=== PATIENT | male | born 1955 | race Caucasian/White ===

== ENCOUNTER → 2017-01-06 | Outpatient (CLI) | payer OTHER ==
[~2017-01-06] MED LIST: B-121000 MC1 PO; CALCIUM MAGNES1 EACH PO; FISH OIL 1,2001 EAC2 PO; FLOMAX0.4 M1 PO; LIPITOR40 MG PO; LO-DOSE ASPIRIN81 M1 PO; NORCO 7.5-3251 EACH PO; VOLTAREN75 MG PO; [UNRECOGNIZED DRUG - OTHER] PO
--- NOTE | ~2017-01-06 | EKG ---
PATIENT: LEVON VALVERDE UNIT #: [id number] Ventricular Rate: 71 BPM Atrial Rate: 71 BPM P-R Interval: 146 ms QRS Duration: 86 ms Q-T Interval: 398 ms QTC Calculation(Bezet): 432 ms P Valier: 74 degrees Calculated R Valier: 26 degrees Calculated T Valier: 60 degrees Diagnosis Line: Normal sinus rhythm with sinus arrhythmia Diagnosis Line: Normal ECG Diagnosis Line: No previous ECGs available Diagnosis Line: Confirmed by LU ELDER MD ([id number]) on Diagnosis Line: 01/07/2017 6:48:56 AM INTERPRETING MD: DORIS
== END | disposition home or self-care (01) ==
LOC: CAMB 13:54
DX: Z01.810 Encounter for preprocedural cardiovascular examination (principal); K40.90 Unilateral inguinal hernia, without obstruction or gangrene, not specified as recurrent; K42.9 Umbilical hernia without obstruction or gangrene
CPT/HCPCS: 93005

== ENCOUNTER → 2017-01-13 | Day surgery (SDC) | payer OTHER ==
--- NOTE | ~2017-01-13 | OR ---
Unit #: [id number] #: [id number] Patient: LEVON VALVERDE [id number] [address] [place], [place] [address] [id number] MR#: [id number] NAME: LEVON VALVERDE ROOM: Date of Procedure: 01/13/2017 Admission Date: 01/13/2017 Surgeon: Get Bone Jr., M.D. : 1955 Attending Physician: Get Bone Jr., M.D. Referring Physician: Get Bone Jr., M.D. Primary Care Physician: Theresa Gama M.D. OPERATIVE REPORT INDICATIONS FOR PROCEDURE The patient is a 61-year-old white male, recently presented to the office complaining of a bulge and some discomfort in the right inguinal area. He also has chronic incarcerated umbilical hernia. He has had a previous left inguinal hernia repair and has some pain in this area at times, but there was no obvious recurrent hernia. He was brought in this time for diagnostic laparoscopy, probable laparoscopic right inguinal hernia repair with open umbilical reduction and repair. The patient understands the procedure including the risks, including that of recurrence, infection, bleeding, and intra-abdominal organ injury, and consents. PREOPERATIVE DIAGNOSIS Right inguinal hernia, rule out left recurrent inguinal hernia with chronic incarcerated umbilical hernia. POSTOPERATIVE DIAGNOSES Right inguinal hernia, rule out left recurrent inguinal hernia with chronic incarcerated umbilical hernia, noting no evidence of any left inguinal hernia. The right inguinal hernia was indirect and there was incarcerated omental fat within the umbilical hernia. ANESTHESIA General with LMA and 0.5% Marcaine with epinephrine locally. PROCEDURES PERFORMED Diagnostic laparoscopy with laparoscopic right inguinal hernia repair and open umbilical hernia reduction and repair with a small Ventralex mesh. DESCRIPTION OF PROCEDURE The patient was positioned in supine position. After being anesthetized, he was prepped and draped in routine fashion for possible laparoscopic inguinal hernia repair and open umbilical hernia repair. A small incision was made in the infraumbilical area just to the right of the midline and a Veress needle was introduced in the abdomen. The abdomen was then inflated with CO2 gas. The 5-mm port was introduced in the abdomen followed by the camera. There was no evidence of any injury related to introduction of the port or the Veress needle. Brief intra-abdominal exploration was carried out. There was no evidence of any recurrent left inguinal hernia, but there was a right indirect inguinal hernia and there was a chronic incarcerated fat within the umbilical hernia. At this point, the CO2 was expressed from the abdomen. The port was removed and the fascia was incised to the right of the midline just below the Unit #: [id number] #: [id number] Patient: LEVON VALVERDE umbilicus and the right rectus abdominis muscle was retracted laterally and using the large Diane, a tunnel was produced. The dissecting balloon was placed and the area was dissected near the pubic symphysis. This was done under direct visualization with the camera. After this was complete, the balloon dissector was removed and the balloon retracting device was then placed and two 5-mm ports were placed in the lower midline through small incisions. The right inguinal area was dissected out. The indirect sac was freed up and cleaned from the cord structures and the peritoneum was likewise reduced down from the base of the cord to allow for proper positioning of the mesh. The patient did develop pneumoperitoneum and a small incision was made and a 5-mm port was introduced and this was evacuated without problems. A large 3D mesh was then placed over the right inguinal area and tacked to the Jesus Alberto's ligament with several spiral tacks. After this was in good position, the CO2 was expressed from the area and evacuated and the peritoneum was pulled over the top of the mesh to avoid any recurrence. After this was complete, all the CO2 was expressed from the abdomen. The additional port was removed and the right rectus sheath was then closed with interrupted 0 Vicryl suture. The skin edges on all 4 wounds were approximated with stainless-steel skin clips and skin stapling device. A small keyhole incision was made around the umbilicus in routine fashion for reduction and repair of his umbilical hernia. This was carried down through the subcutaneous tissue with a #15 blade scalpel to his hernia, which was stuck to the posterior aspect of the dermis of the umbilicus. This was freed up with a #15 blade scalpel and the fatty tissue incarcerated within that was then reduced back into the abdomen. There was approximately 1.5 cm defect in the fascia. Small Ventralex mesh was then placed below the muscle and pulled up against the muscle anteriorly and the straps tacked in place with interrupted 0 Ethibond sutures. The straps were then excised and the wound was irrigated with antibiotic solution, and after hemostasis was noted, the fascial defect was closed with interrupted 0 Ethibond sutures using modified Amor-Taylor type stitches. After this was complete, the umbilicus was tacked by tacking the dermis of the posterior aspect of the umbilicus to the fascia with 3-0 Vicryl suture. The subcutaneous tissue on the wound was approximated with interrupted 3-0 Vicryl sutures and skin edges were approximated with stainless-steel skin clips and skin stapling device. Sterile compressive dressing was applied externally. Estimated blood loss for both procedures including the diagnostic laparoscopy was less than 50 mL. The patient received a total of approximately 2000 mL or less of crystalloid solution during the procedure. Sponges and instrument counts were correct x3. No drains were used. No complications. The patient was taken to the recovery room with stable vital signs and in satisfactory condition. Dictated by... Get Bone Jr., MKeyon ROBERTSON/mary TD: 01/14/2017 01:58 JOB #: [id number] Unit #: [id number] #: [id number] Patient: LEVON VALVERDE OPERATIVE REPORT Page 1 of 1 X Get Bone MD X PROCEDURE OPERATIVE NOTE
== END | disposition home or self-care (01) ==
LOC: CSUR 06:32
DX: K40.30 Unilateral inguinal hernia, with obstruction, without gangrene, not specified as recurrent (principal); K42.0 Umbilical hernia with obstruction, without gangrene; E78.5 Hyperlipidemia, unspecified; M19.90 Unspecified osteoarthritis, unspecified site; Z87.891 Personal history of nicotine dependence; Z91.013 Allergy to seafood; Z79.82 Long term (current) use of aspirin; Z79.891 Long term (current) use of opiate analgesic; Z79.899 Other long term (current) drug therapy; Z98.890 Other specified postprocedural states
CPT/HCPCS: C1781; J0330; J0690; J1170; J1885; J2250; J2405; J2710; J3010